=== PATIENT | male | born 1955 | race Asian ===

== ENCOUNTER → 2016-09-10 | Outpatient (CLI) | payer MEDICAID | END | disposition home or self-care (01) | LOC: ROC 07:52 | PROVIDERS: ATTEND Radiology Radiation Oncology | DX: D33.3 Benign neoplasm of cranial nerves (principal); M54.2 Cervicalgia; G89.29 Other chronic pain; H93.11 Tinnitus, right ear; H91.91 Unspecified hearing loss, right ear | CPT/HCPCS: 99213; G0463 ==